=== PATIENT | female | born 1975 | race Asian ===

== ENCOUNTER 2017-09-08 22:35 | Emergency (ER) | payer BC | END 2017-09-09 01:38 | disposition home or self-care (01) | LOC: D.ER 22:35 | DX: S96.911A Strain of unspecified muscle and tendon at ankle and foot level, right foot, initial encounter (principal); X58.XXXA Exposure to other specified factors, initial encounter; Y93.89 Activity, other specified; Y92.019 Unspecified place in single-family (private) house as the place of occurrence of the external cause ==